=== PATIENT | male | born 1965 ===

== ENCOUNTER → 2023-03-31 13:56 | Outpatient (BNVA) | payer OTHER, SELFPAY | PROVIDERS: Visit Provider Physician Assistant ==

== ENCOUNTER 2023-04-29 11:37 | Outpatient (AMB) | payer OTHER, SELFPAY ==
--- NOTE | 2023-04-29 12:11 | HO.SPINEOV ---
Intake Intake Visit Reasons: Neck pain Intake Note: Mr. Doyle is here today c/o neck pain. Previous c/spine surgery 2yrs ago. No new imaging. [employer] Supervisor Required: No Assessment & Plan Assessment & Plan (1) Neck pain: Code(s): M54.2 - Cervicalgia Plan Dear colleague, On 04/29/2023, I saw Mr. Leo Doyle for neck pain. He underwent an anterior diskectomy and fusion approximately 2 years ago they gave him complete relief of his cervical radiculopathy. He needs to have right shoulder surgery done and was forced to do physical therapy when insurance company before surgery was approved. Physical therapy did very intense stretches on his right shoulder which resulted in posterior neck pain and radiates up his neck. Last PT session was approximately 3 months ago and no improvement of his symptoms have recurred. The ongoing right shoulder pain is not helping either with his neck pain. He was worried that the implant was out of place and therefore I ordered an x-ray of the cervical spine which shows is satisfactory position of the implant and no other abnormalities. I am hoping that the shoulder surgery will also have a beneficial effect on the neck pain. Thank you for letting me take care of your patient. Jaiden Cho MD, PhD Spine Fellowship Trained Neurosurgeon Director, [facility] Orders: Orders XR cervical spine 2V Today M43.22 - Fusion of spine, cervical region, M54.2 - Cervicalgia Coding Level of Care Code Est Pt Level 2 (11007) Diagnoses Neck pain M54.2
== END 2023-04-29 12:50 | disposition home or self-care (01) ==
PROVIDERS: Visit Provider Neurological Surgery
DX: M54.2 Cervicalgia (principal)
CPT/HCPCS: 99212

== ENCOUNTER 2023-04-29 11:37 | Outpatient (REF) | payer OTHER, SELFPAY ==
--- NOTE | ~2023-04-29 | XR_ITS ---
EXAMINATION: XR CERVICAL SPINE CLINICAL INFORMATION: Fusion changes COMPARISON: None available. TECHNIQUE: 3 views of the cervical spine were obtained. FINDINGS: No prevertebral soft tissue swelling. Satisfactory interbody fusion changes are noted C5-C6. Hardware is in position with substance about the fusion device. There is mild endplate spurring throughout. Posterior elements intact. Lung apices clear. XR/XR cervical spine 2V IMPRESSION: Satisfactory fusion changes C5-C6 as above.
== END 2023-04-29 11:38 | disposition home or self-care (01) ==
LOC: HO.HOSX 11:37
PROVIDERS: Visit Provider Neurological Surgery
DX: M54.2 Cervicalgia (principal); M43.22 Fusion of spine, cervical region
CPT/HCPCS: 72040